=== PATIENT | female | born 1980 | race African-American/Black ===

== ENCOUNTER 2016-12-01 14:08 | Emergency (ER) | payer SELFPAY ==
[~2016-12-01] VITALS: Ht 162.6 cm; Wt 79.0 kg
[2016-12-01 14:09] VITALS: BP 127/76; PULSE 97; RESP 16; TEMP 98; O2SAT 98
[2016-12-01 15:22] LABS: BLOOD, URINE NEG (NEG); COMMENT (UR) CULTURE INDICATED; CULTURE IF INDICATED CULTURE INDICATED; GLUCOSE,URINE NEG (NEG); KETONE, URINE NEG (NEG); MUCUS URINE MOD /lpf (OCC); NITRITE,URINE NEG (NEG); PH, URINE 5.5 (5.0-8.5); SQUAMOUS EPITHELIAL CELL URINE 2 /hpf (0-5); URINE COLOR YELLOW (YELLW/STRAW)
[2016-12-01 16:12] LABS: BETA HCG QUANT 61295 MIU/ML (0-5)
[2016-12-01] MEDS ORDERED: cefTRIAXone 250 MG VIAL IM ONE (16:45)
[2016-12-01] MEDS ORDERED: AZITHROMYCIN PWD FOR SUSP 1 GM PACKET PO ONE (16:45)
[2016-12-01] MEDS ORDERED: LIDOCAINE HCL 1% 50 ML VIAL IM ONE (16:45)
[2016-12-01] MEDS ORDERED: ONDANSETRON ODT 4 MG TAB PO ONE (16:45)
[2016-12-01] MEDS ORDERED: metroNIDAZOLE 500 MG TAB PO ONE (16:45)
--- NOTE | 2016-12-01 17:03 | PD ---
HPI Chief Complaint: Related Problem Time Seen by Provider: 16:14 Travel History International Travel<30 days: No Contact w/Intl Traveler<30days: No Traveled to known affect area: No History of Present Illness HPI This is a 36 year-old woman who presents to the emergency department because she 's . She is from [place]. She states she fell she is a couple weeks ago. She is visiting here in the country and is no what to do about being . She is not supposed to go back until March. She states she bled for 2 days in October, and in September, her last normal menstrual period was back in August. She had some morning sickness but this seems to be resolving some. She is 5 para 3, 1, 0, 4. She also states she's had a yellowish discharge it's been ongoing. History Past Medical History Medical History: Denies Significant Hx LMP: october 2016 : 5 Para: 4 Past Surgical History Surgical History: No Previous Surgery Social History Alcohol Use: No Tobacco Use: No Allergies-Medications (Allergen,Severity, Reaction): Coded Allergies: No Known Allergies (Unverified , 12/01/16) Review of Systems Except as stated in HPI: all other systems reviewed are Neg Physical Exam Narrative GENERAL: This a 36 year-old woman, no acute distress. SKIN: Focused skin assessment warm/dry. HEAD: Atraumatic. Normocephalic. EYES: Pupils equal and round. No scleral icterus. No injection or drainage. CARDIOVASCULAR: Regular rate and rhythm. No murmur appreciated. RESPIRATORY: No accessory muscle use. Clear to auscultation. Breath sounds equal bilaterally. GASTROINTESTINAL: Abdomen soft, non-tender, nondistended. Hepatic and splenic margins not palpable. MUSCULOSKELETAL: No obvious deformities. No edema. PELVIC: Normal general female genitalia. Is a copious amount of yellowish purulent drainage, with some cervical irritation. Data Data Last Documented VS Vital Signs Date Time Temp Pulse Resp B/P Pulse Ox O2 Delivery O2 Flow Rate FiO2 12/01/16 14:09 98.0 97 16 127/76 98 Orders Beta Hcg (Quant/Titer) (12/01/16 15:03) Urinalysis - C+S If Indicated (12/01/16 15:03) Urine Culture (12/01/16 15:08) Ed Poc Ultrasound (12/01/16 ) Gc And Chlamydia Pcr (12/01/16 16:41) Wet Prep Profile (12/01/16 16:41) Azithromycin Powd Pack (Zithromax Powd P (12/01/16 16:45) Ceftriaxone Inj (Rocephin Inj) (12/01/16 16:45) Lidocaine 1% Inj (50 Ml) (Xylocaine 1% I (12/01/16 16:45) Metronidazole (Flagyl) (12/01/16 16:45) Ondansetron Odt (Zofran Odt) (12/01/16 16:45) Labs Laboratory Tests Test 12/01/16 12/01/16 15:08 15:14 Urine Color YELLOW Urine Turbidity CLEAR Urine pH 5.5 Urine Specific [place] 1.028 Urine Protein TRACE mg/dL Urine Glucose (UA) NEG mg/dL Urine Ketones NEG mg/dL Urine Occult Blood NEG Urine Nitrite NEG Urine Bilirubin NEG Urine Urobilinogen LESS THAN 2.0 MG/DL Urine Leukocyte Esterase LARGE Urine RBC 5 /hpf Urine WBC 18 /hpf Urine Squamous Epithelial 2 /hpf Cells Urine Mucus MOD /lpf Microscopic Urinalysis Comment CULTURE INDICATED Human Chorionic Gonadotropin, 267[address] MIU/ML Quant MDM Medical Decision Making Medical Screen Exam Complete: Yes Emergency Medical Condition: Yes Differential Diagnosis , ectopic, IUP, cervicitis Narrative Course Medical decision-making 36 year-old woman presents emergent arm with yellowish vaginal discharge. She likely is cervicitis. is about 12 weeks by ultrasound. Looks otherwise well. Needs outpatient follow-up with OB. Procedures Procedure Narrative Point of care ultrasound: Focus transabdominal child perform a me at the bedside. Espinoza intrauterine is identified. Estimated age by crown-rump length is 12 weeks. Good heart motion. Good motion. Diagnosis Primary Impression: Cervicitis Additional Impression: Intrauterine Additional Instructions: Follow-up with an director of first impressions for routine OB care. Followup with your web manager for routine [employer] SAL[employer] REPRESENTATIVE care and followup testing for other sexually transmitted infection such as HIV, hepatitis, syphilis. Any sexual partners you have should be tested and treated as well. You should not have sex until you have no symptoms, and your partners tested and treated as well. Med/Other Pt SpecificInfo: Prescription(s) given Disposition: 01 DISCHARGE HOME Condition: Jhon Watson MD December 01, 2016 17:03
[2016-12-01 17:35] VITALS: BP 137/84; PULSE 84; TEMP 99.8; O2SAT 100
[2016-12-01 19:51] LABS: CHLAMYDIA PCR NOT DETECTED (NOT DETECT); NEISSERIA PCR NOT DETECTED (NOT DETECT)
== END 2016-12-01 17:46 | disposition home or self-care (01) ==
LOC: NEPD 14:08
DX: O23.511 Infections of cervix in pregnancy, first trimester (principal); N72 Inflammatory disease of cervix uteri; R82.90 Unspecified abnormal findings in urine; Z3A.12 12 weeks gestation of pregnancy
CPT/HCPCS: 81001; 84702; 87086; 87210; 87491; 87591; 96372; 99285; J0696

== ENCOUNTER 2017-01-07 13:01 | Emergency (ER) | payer OTHER ==
[2017-01-07 13:02] VITALS: BP 112/77; PULSE 88; RESP 20; TEMP 98.3; O2SAT 100
--- NOTE | 2017-01-07 13:05 | PD ---
Physical Exam Date Seen by Provider: Jan 07, 2017 Time Seen by Provider: 13:04 Narrative 36 yo female here for evaluation of abdominal discomfort, back pain. She is 16 weeks by US. Pain is achy. cannot sit because of pain. No discharge. Vitals are stable in triage. Awaiting bed placement. Data Data Last Documented VS Vital Signs Date Time Temp Pulse Resp B/P Pulse Ox O2 Delivery O2 Flow Rate FiO2 01/07/17 13:02 98.3 88 20 112/77 100 Room Air [facility] Medical Record Reviewed: Yes Supervised Visit with XIMENA: Shyam Dodson Jan 07, 2017 13:05
--- NOTE | 2017-01-07 14:01 | PD ---
HPI Chief Complaint back spasms Date Seen: Jan 07, 2017 Time Seen: 13:53 (Crystal Geronimo MD R1) Travel History International Travel<30 Days: No Contact w/Intl Traveler<30Days: No (Crystal Geronimo MD) History of Present Illness HPI Patient is a 36 year old at 17 and 1/7 weeks gestation, EDC 06/16/2017, who presents to the OB ED for back spasms. He is up and going over last couple weeks and they are worse now making it difficult to move around. Spasms are only generally occurring with movement and feel like contraction pain at times. She has had isolated episodes of vomiting over the weekend, most recently having one episode yesterday as well. She has intermittent nausea for which ice helps. She has not had any diarrhea, fevers, chills, chest pain,, Pain, dizziness, seeing spots shortness of breath, headaches. She does have a history of migraines but these are not currently active. She denies leakage of fluid, vaginal bleeding, and contractions. She feels baby moving. OB care is with Kassi Haile, and she established care with her last week. 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 Para: 4 : 5 (Crystal Geronimo MD) History Past Medical History Narrative Medical Chronic migraines, currently not active (Crystal Geronimo MD) Obstetric History Obstetric History Late to [facility], established 12/29/16 with Kassiyuri Haile Vaginal delivery 4 1 was at 7 months Biggest baby 7 lbs. 3 oz. (Crystal Geronimo MD) Past Surgical History Surgical History: No Previous Surgery (Crystal Geronimo MD) Family History Narrative Family History Grandmother cancer of unknown kind Multiple sons have asthma Family History: Negative (Crystal Geronimo MD) Social History Narrative Social History From [place] Alcohol Use: No Tobacco Use: No Substance Abuse: No (Crystal Geronimo MD) Allergies-Medications (Allergen,Severity, Reaction): Coded Allergies: No Known Allergies (Unverified , 12/01/16) Review of Systems Except as stated in HPI: all other systems reviewed are Neg (Crystal Geronimo MD) Physical Exam Vital Signs Date Time Temp Pulse Resp B/P Pulse Ox O2 Delivery O2 Flow Rate FiO2 01/07/17 13:02 98.3 88 20 112/77 100 Room Air Narrative GENERAL: Well-nourished, well-developed female in no apparent distress SKIN: Warm and dry. No rashes. HEAD: Normocephalic and atraumatic. EYES: No scleral icterus. No injection or drainage. ENT: No nasal drainage noted. Mucous membranes pink. Airway patent. NECK: Supple, trachea midline. No JVD. CARDIOVASCULAR: Regular rate and rhythm without murmurs, gallops, or rubs. RESPIRATORY: Breath sounds equal bilaterally. No accessory muscle use. ABDOMEN/GI: Abdomen soft, bowel sounds present, no rebound, no guarding. Fundus is palpable below the umbilicus. She has mild tenderness to palpation over the lower abdomen. GENITOURINARY: Sterile speculum exam performed. No vaginal or cervical lesions, erythema. Normal physiologic discharge noted. No cervical motion tenderness. External Genitalia: intact and normal in appearance Cervix: closed, long, soft Uterine Contractions: none palpated FHR 176 EXTREMITIES: No cyanosis. 1+ edema of the left lower ext, nontender. Patient says this is chronic. Negative Jaguar's sign BACK: Nontender without obvious deformity. No CVA tenderness. NEUROLOGICAL: Awake and alert. Motor and sensory grossly within normal limits. Five out of 5 muscle strength in all muscle groups. Normal speech and gait. ( Crystal Geronimo MD R1) Data Data Vital Signs Reviewed: Yes (BP 115/69, temp 98.7F) (Crystal Geronimo MD R1) MDM Medical Record Reviewed: Yes Narrative Course / MDM 36 year old who presents with two weeks of lower back spasms. Intrauterine FHR 176 Not judi No cervical change Continue routine care Late to [facility] at 16 weeks Back Spasms Likely MSK pain given location and history of heavy lifting UA sent, pending Recommended Tylenol PRN, heating pad, back brace Light duty recommended at work, patient states she will be able to do this Seen and discussed with Dr. Bowman (Crystal Geronimo MD R1) Diagnosis Diagnosis: Primary Impression: with 17 completed weeks gestation Additional Impression: Spasm of back muscles Disposition: 01 DISCHARGE HOME Condition: Stable Patient Instructions: Back Pain (ED) Addendum Remarks I rounded on the patient. I rounded with the resident. I reviewed the resident' s assessment and plan of care for this patient. I am in agreement with the plan of care for this patient. (Christiane Goetz MD) Crystal Geronimo MD R1 Jan 07, 2017 14:01 Christiane Goetz MD Jan 07, 2017 16:58
[2017-01-07 14:50] LABS: BLOOD, URINE NEG (NEG); COMMENT (UR) CULT NOT INDICATED; CULTURE IF INDICATED CULT NOT INDICATED; GLUCOSE,URINE NEG (NEG); KETONE, URINE NEG (NEG); MUCUS URINE MOD /lpf (OCC); NITRITE,URINE NEG (NEG); PH, URINE 5.5 (5.0-8.5); SQUAMOUS EPITHELIAL CELL URINE 11 /hpf (0-5); URINE COLOR YELLOW (YELLW/STRAW)
== END 2017-01-07 15:18 | disposition home or self-care (01) ==
LOC: HOBED 13:01
DX: O26.899 Other specified pregnancy related conditions, unspecified trimester (principal); M62.830 Muscle spasm of back; Z3A.17 17 weeks gestation of pregnancy
CPT/HCPCS: 81001; 99283

== ENCOUNTER 2017-02-26 22:04 | Emergency (ER) | payer OTHER ==
--- NOTE | 2017-02-26 23:00 | PD ---
HPI Chief Complaint Right lower quadrant pain Date Seen: Feb 26, 2017 Time Seen: 22:55 Travel History International Travel<30 Days: No Contact w/Intl Traveler<30Days: No Known Affected Area: No History of Present Illness HPI 36-year-old who is at 24 weeks 2 days complains of right lower quadrant pain that began at 8 PM. Patient states that states that she bent over when she was cleaning and when she strained up she experienced a pulling sensation in her right lower quadrant of the abdomen that improved after she labored down. Patient denies vaginal pain discharge or contractions. Good movement. Para: 4 : 5 History Past Medical History Medical History: Denies Significant Hx Obstetric History Obstetric History Spontaneous vaginal delivery 3 full-term delivery at 7 months Family History Family History: Negative Social History Alcohol Use: No Tobacco Use: No Substance Abuse: No Allergies-Medications (Allergen,Severity, Reaction): Coded Allergies: No Known Allergies (Unverified , 12/01/16) Review of Systems Except as stated in HPI: all other systems reviewed are Neg Physical Exam Narrative GENERAL: Well-nourished, well-developed patient. SKIN: Warm and dry. HEAD: Normocephalic and atraumatic. EYES: No scleral icterus. No injection or drainage. ENT: No nasal drainage noted. Mucous membranes pink. Airway patent. NECK: Supple, trachea midline. No JVD. CARDIOVASCULAR: Regular rate and rhythm without murmurs, gallops, or rubs. RESPIRATORY: Breath sounds equal bilaterally. No accessory muscle use. ABDOMEN/GI: Abdomen soft, non-tender, bowel sounds present, no rebound, no guarding Gravid to [24-] weeks size Fundal Height: [-] GENITOURINARY: External Genitalia: intact and normal in appearance BUS glands: [-Normal] Cervix: [Posterior-] Dilatation: [Closed-] Effacement: [-Long] Station: [-High] Presentation: [-] Membranes: [intact or ruptured] Uterine Contractions: [-Absent] FHT's: Category: [-1] Baseline: [145-] Reactive: Moderate [-] Variability: [-] Moderate Decels: [-] Absent EXTREMITIES: No cyanosis or edema. BACK: Nontender without obvious deformity. No CVA tenderness. NEUROLOGICAL: Awake and alert. Motor and sensory grossly within normal limits. Five out of 5 muscle strength in all muscle groups. Normal speech. Data Data Vital Signs Reviewed: Yes MDM Medical Record Reviewed: Yes Plan 36-year-old at 24-25 weeks with muscle strain Patient has no contractions on the monitor Follow-up with her OB provider Diagnosis Diagnosis: Primary Impression: 24 weeks gestation of Additional Impressions: Abdominal pain during in second trimester Muscle strain Disposition: 01 DISCHARGE HOME Katia Delatorre MD Feb 26, 2017 23:00
== END 2017-02-26 23:32 | disposition home or self-care (01) ==
LOC: HOBED 22:04
DX: O26.92 Pregnancy related conditions, unspecified, second trimester (principal); R10.31 Right lower quadrant pain; Z3A.24 24 weeks gestation of pregnancy; X50.3XXA Overexertion from repetitive movements, initial encounter; Y93.E9 Activity, other interior property and clothing maintenance; Y92.009 Unspecified place in unspecified non-institutional (private) residence as the place of occurrence of the external cause; Y99.8 Other external cause status
CPT/HCPCS: 99283